=== PATIENT | female | born 1985 | race Caucasian/White ===

== ENCOUNTER 2017-07-20 11:37 | Emergency (ER) | payer MEDICAID ==
[~2017-07-20] VITALS: Ht 170.2 cm; Wt 82.6 kg
[2017-07-20 12:20] LABS: HCG UR LOT HCG7030192
[2017-07-20 12:26] LABS: HEMATOCRIT 39.6 % (34.6-47.8); HEMOGLOBIN 13.6 g/dL (11.7-16.4); WHITE BLOOD COUNT 8.6 x10^3/uL (3.4-10)
[2017-07-20 12:28] LABS: HCG UR OBC PASS
[2017-07-20 12:39] LABS: ASPARTATE AMINO TRANSFERASE 9 U/L (15-37); BLOOD UREA NITROGEN 7 mg/dL (7-18)
[2017-07-20 13:07] VITALS: BP 145/76
== END 2017-07-20 14:04 | disposition home or self-care (01) ==
LOC: ED 13:40
DX: B34.9 Viral infection, unspecified (principal); F32.9 Major depressive disorder, single episode, unspecified; Z98.890 Other specified postprocedural states
CPT/HCPCS: 36415; 71020; 80053; 81003; 81025; 85025; 93005; 99285

== ENCOUNTER 2018-01-29 11:40 | Emergency (ER) | payer MEDICAID ==
[~2018-01-29] VITALS: Ht 170.2 cm; Wt 103.2 kg
[2018-01-29 11:42] VITALS: BP 131/83
[2018-01-29] MEDS ORDERED: DIPH,PERTUSS(ACELL),TET VAC/PF 0.5 ML IM-VACC ONE ×2 (12:54→13:00)
== END 2018-01-29 13:04 | disposition home or self-care (01) ==
LOC: ED 12:58
DX: S61.353A Open bite of left middle finger with damage to nail, initial encounter (principal); I10 Essential (primary) hypertension; W54.0XXA Bitten by dog, initial encounter; Y93.89 Activity, other specified; Y92.89 Other specified places as the place of occurrence of the external cause; Y99.8 Other external cause status
CPT/HCPCS: 90471; 90715; 99283

== ENCOUNTER 2018-03-14 13:48 | Emergency (ER) | payer MEDICAID ==
[~2018-03-14] VITALS: Ht 170.2 cm; Wt 110.2 kg
[2018-03-14 15:13] VITALS: BP 131/69
[2018-03-14] MEDS ORDERED: BUPROPION PO (15:17)
[2018-03-14] MEDS ORDERED: ESCI20TA PO (15:17)
[2018-03-14] MEDS ORDERED: PRAZ2CAP2 PO (15:17)
[2018-03-14] MEDS ORDERED: TRAZ100T15 PO (15:17)
[2018-03-14] MEDS ORDERED: CITA40TA5 PO (15:17)
== END 2018-03-14 15:33 | disposition home or self-care (01) ==
LOC: ED 15:00
DX: H66.001 Acute suppurative otitis media without spontaneous rupture of ear drum, right ear (principal); J00 Acute nasopharyngitis [common cold]; I10 Essential (primary) hypertension
CPT/HCPCS: 71046; 93005; 99284

== ENCOUNTER 2018-06-01 11:42 | Emergency (ER) | payer MEDICAID ==
[~2018-06-01] VITALS: Ht 172.7 cm; Wt 120.0 kg
[~2018-06-01 11:42] MED LIST: BUPROPION PO; CITA40TA5 PO; ESCI20TA PO; PRAZ2CAP2 PO; TRAZ-137 PO
[2018-06-01 11:48] VITALS: BP 145/83
[2018-06-01] MEDS ORDERED: ALBUTEROL/IPRATROPIUM 2.5MG/0.5MG, 3 ML NPPB SCH (12:00)
[2018-06-01] MEDS ORDERED: DEXAMETHASONE 4 MG TABLET PO ONE (12:00)
[2018-06-01] MEDS ORDERED: DEXAMETHASONE 4 MG TABLET ONE (12:10)
[2018-06-01] MEDS ORDERED: ALBUTEROL/IPRATROPIUM 2.5MG/0.5MG, 3 ML ONE (12:11)
== END 2018-06-01 12:52 | disposition home or self-care (01) ==
LOC: ED 12:46
DX: J45.31 Mild persistent asthma with (acute) exacerbation (principal); J00 Acute nasopharyngitis [common cold]; I10 Essential (primary) hypertension; F17.200 Nicotine dependence, unspecified, uncomplicated; H92.03 Otalgia, bilateral
CPT/HCPCS: 94640; 99283; J7620

== ENCOUNTER 2019-02-19 10:43 | Emergency (ER) | payer MEDICAID ==
[~2019-02-19] VITALS: Ht 172.7 cm; Wt 125.5 kg
[2019-02-19 11:29] LABS: HCG UR SG 1.023 (1.003-1.030); MICROSCOPIC AUTO
[2019-02-19 11:30] LABS: CULTURE INDICATED? YES
--- NOTE | 2019-02-19 13:06 | NUR ---
[place]: PT TO ROOM FROM LOBBY, UPRIGHT STEADY GAIT.
--- NOTE | 2019-02-19 13:10 | NUR ---
"feeling like i ahve a bladder or urinary tract infection", frequency, discharge, pain on urination, cloudy urine, denies blood in urine. symptoms x 3 days
[2019-02-19 13:54] VITALS: BP 105/79
--- NOTE | 2019-02-19 14:06 | NUR ---
er performed pelvic exam. pt tolerated procedure well. pt resting on gurney. friend at bedside. no acute distress noted. specimens walked to lab. pt has no requests at this time.
[2019-02-19 14:24] LABS: CLUE CELLS NONE SEEN (NONE SEEN); WET PREP WBCS MODERATE (FEW)
[2019-02-19] MEDS ORDERED: CEFTRIAXONE 250 MG ONE (14:52)
[2019-02-19] MEDS ORDERED: metroNIDAZOLE 500 MG TABLET ONE (14:52)
[2019-02-19] MEDS ORDERED: AZITHROMYCIN 250 MG TABLET ONE (14:53)
[2019-02-19] MEDS ORDERED: LIDOCAINE-MPF 1%, 2ML ONE (14:59)
[2019-02-19] MEDS ORDERED: AZITHROMYCIN 500 MG TABLET PO ONE (15:00)
[2019-02-19] MEDS ORDERED: metroNIDAZOLE 500 MG TABLET PO ONE (15:00)
[2019-02-19] MEDS ORDERED: CEFTRIAXONE 250 MG IM ONE (15:00)
== END 2019-02-19 15:22 | disposition home or self-care (01) ==
LOC: ED 13:23
DX: A59.01 Trichomonal vulvovaginitis (principal); I10 Essential (primary) hypertension; J45.909 Unspecified asthma, uncomplicated; F17.200 Nicotine dependence, unspecified, uncomplicated
CPT/HCPCS: 81001; 81025; 87086; 87147; 87210; 87491; 87591; 87808; 96372; 99283; J0696

== ENCOUNTER 2019-03-08 10:44 | Emergency (ER) | payer MEDICAID ==
[~2019-03-08] VITALS: Ht 170.2 cm; Wt 126.1 kg
[2019-03-08 11:23] LABS: CULTURE INDICATED? YES; MICROSCOPIC INDICATED
[2019-03-08 11:54] LABS: BASOPHILS # (AUTO) 0.05 x10^3/uL (0-0.1); BASOPHILS % (AUTO) 1 % (0-1); EOSINOPHILS # (AUTO) 0.18 x10^3/uL (0-0.4); EOSINOPHILS % (AUTO) 2 % (1-7); LYMPHOCYTES # (AUTO) 3.02 x10^3/uL (1-3.4); LYMPHOCYTES % (AUTO) 30 % (22-44); MD NO; MEAN CORPUSCULAR HEMOGLOBIN 31.1 pg (27.0-34.8); MEAN CORPUSCULAR HGB CONC 32.6 g/dL (32.4-35.8); MEAN CORPUSCULAR VOLUME 95.3 fL (80-100); MEAN PLATELET VOLUME 7.9 fL (7.4-10.4); MONOCYTES # (AUTO) 0.54 x10^3/uL (0.2-0.8); MONOCYTES % (AUTO) 5 % (2-9); NEUTROPHILS % (AUTO) 62 % (42-75); PLATELET COUNT 324 x10^3/uL (130-400); RED BLOOD COUNT 4.34 x10^6/uL (3.82-5.3)
[2019-03-08 12:05] LABS: ALBUMIN 3.5 g/dL (3.4-5.0); CALCIUM 8.7 mg/dL (8.5-10.1); CHLORIDE 108 mmol/L (98-107)
[2019-03-08 12:16] LABS: ANION GAP 8 mmol/L (5-15); CREATININE 0.85 mg/dL (0.55-1.02)
[2019-03-08 13:32] VITALS: BP 162/112
[2019-03-08] MEDS ORDERED: TOPI100T8 PO (15:13)
[2019-03-08 15:49] LABS: CLUE CELLS NONE SEEN (NONE SEEN); WET PREP WBCS FEW (FEW)
--- NOTE | 2019-03-08 17:11 | NUR ---
Patient/Caregiver given discharge instructions and they have confirmed that they understand the instructions. Patient ambulatory with steady gait.
== END 2019-03-08 17:12 | disposition home or self-care (01) ==
LOC: ED 15:43
DX: N30.00 Acute cystitis without hematuria (principal); J45.909 Unspecified asthma, uncomplicated; F32.9 Major depressive disorder, single episode, unspecified
CPT/HCPCS: 36415; 76830; 80048; 81001; 82040; 84703; 85025; 87077; 87086; 87186; 87210; 87491; 87591; 87808; 99284

== ENCOUNTER 2019-05-05 10:05 | Outpatient (CLI) | payer MEDICAID | END 2019-05-05 23:59 | disposition home or self-care (01) | LOC: STAR 10:05 | PROVIDERS: ATTEND Obstetrics & Gynecology Female Pelvic Medicine and Reconstructive Surgery | DX: Z01.818 Encounter for other preprocedural examination (principal); R19.09 Other intra-abdominal and pelvic swelling, mass and lump; R10.2 Pelvic and perineal pain | CPT/HCPCS: 81001; 87086 ==

== ENCOUNTER 2019-05-09 08:17 | Day surgery (SDC) | payer MEDICAID ==
[~2019-05-09] VITALS: Ht 170.2 cm; Wt 126.2 kg
[2019-05-09 08:58] VITALS: BP 136/88
== END 2019-05-09 13:55 | disposition home or self-care (01) ==
LOC: OUT 08:17
PROVIDERS: ATTEND Obstetrics & Gynecology Female Pelvic Medicine and Reconstructive Surgery
DX: D39.11 Neoplasm of uncertain behavior of right ovary (principal); N81.89 Other female genital prolapse; N39.3 Stress incontinence (female) (male); I10 Essential (primary) hypertension; J45.909 Unspecified asthma, uncomplicated; F17.210 Nicotine dependence, cigarettes, uncomplicated; Z79.899 Other long term (current) drug therapy; Z88.2 Allergy status to sulfonamides; Z91.018 Allergy to other foods
CPT/HCPCS: 58661; 88305; J0690; J1100; J1885; J2250; J2405; J2704; J2710; J3010; J3490; J7120

== ENCOUNTER 2019-05-11 17:18 | Emergency (ER) | payer MEDICAID ==
[~2019-05-11] VITALS: Ht 170.2 cm; Wt 129.1 kg
[2019-05-11 18:27] VITALS: BP 143/95
== END 2019-05-11 21:06 | disposition left against medical advice (07) ==
LOC: ED 21:00
DX: T81.40XA Infection following a procedure, unspecified, initial encounter (principal)
CPT/HCPCS: 36415; 80053; 81001; 84703; 85025; 87086; 99283

== ENCOUNTER 2020-07-10 19:23 | Emergency (ER) | payer MEDICAID ==
[~2020-07-10] VITALS: Ht 170.2 cm; Wt 132.0 kg
[~2020-07-10 19:23] MED LIST changes: +BUPR450T3 PO; +TOPI100T8 PO; -TRAZ-137 PO; +TRAZ-175 PO
[2020-07-10 21:10] VITALS: BP 150/103
--- NOTE | 2020-07-10 21:11 | NUR ---
First contact with patient: patient presents to ER c/o rectal pain since yesterday. Denies rectal bleeding; having normal BM. Patient is in NAD. Respirations even and unlabored.
== END 2020-07-10 21:57 | disposition home or self-care (01) ==
LOC: ED 21:56
DX: K62.89 Other specified diseases of anus and rectum (principal); F17.210 Nicotine dependence, cigarettes, uncomplicated
CPT/HCPCS: 99283; 99406

== ENCOUNTER 2020-10-12 17:03 | Emergency (ER) | payer MEDICAID ==
[~2020-10-12] VITALS: Ht 172.7 cm; Wt 134.9 kg
[~2020-10-12 17:03] MED LIST changes: -ESCI20TA PO; +ESCI20TA5 PO
--- NOTE | 2020-10-12 17:15 | NUR ---
OUTREACH WORKER: PT TO ROOM FROM TRIAGE
--- NOTE | 2020-10-12 17:25 | NUR ---
PT RESTING IN POSITION OF COMFORT IN [facility]. CONTINUOUS SPO2 AND CARDIAC MONITORING IN PLACE. REPORT TO PRIMARY RN, ALEKSANDAR. ED KAM[facility] VEGA, AT BEDSIDE.
[2020-10-12 18:20] LABS: BASOPHILS % (AUTO) 0 % (0-1); EOSINOPHILS % (AUTO) 1 % (1-7); LYMPHOCYTES % (AUTO) 25 % (22-44); MEAN CORPUSCULAR HEMOGLOBIN 33.1 pg (27.0-34.8); MEAN PLATELET VOLUME 7.2 fL (7.4-10.4); MONOCYTES % (AUTO) 8 % (2-9); NEUTROPHILS % (AUTO) 66 % (42-75); PLATELET COUNT 255 x10^3/uL (130-400); RED CELL DISTRIBUTION WIDTH 14.3 % (9.6-15.2)
[2020-10-12 18:24] LABS: MD NO
[2020-10-12 18:32] LABS: ALBUMIN 3.6 g/dL (3.4-5.0); ANION GAP 8 mmol/L (5-15); CALCIUM 8.9 mg/dL (8.5-10.1); CHLORIDE 107 mmol/L (98-107); CREATININE 0.78 mg/dL (0.55-1.02)
[2020-10-12 18:37] LABS: ALANINE AMINOTRANSFERASE 21 U/L (12-78); ALKALINE PHOSPHATASE 72 U/L (45-117); BILIRUBIN,TOTAL 0.3 mg/dL (0.2-1.0); D-DIMER (DIC) 1.87 ug/mlFEU (0.00-0.52); PROTIME 10.7 Seconds (9.6-11.5); TOTAL PROTEIN 7.6 g/dL (6.4-8.2); TROPONIN I < 0.015 ng/mL (0.000-0.045)
--- NOTE | 2020-10-12 18:49 | NUR ---
Report from Christine HAY
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
--- NOTE | 2020-10-12 19:16 | NUR ---
PATIENT AMBULATED TO RESTROOM UNASSISTED, RETURNED TO ROOM WITHOUT INCIDENT, NAD, VSS, WILL CONTINUE TO MONITOR
[2020-10-12] MEDS ORDERED: SODIUM CHLORIDE FLUSH 10ML SYR IVF ONE (19:30)
[2020-10-12] MEDS ORDERED: SODIUM CHLORIDE 0.9% 1,000 ML IV ONE (19:30)
[2020-10-12] MEDS ORDERED: OMNIPAQUE 350 MG/ML, 100ML BOTTLE ONE (20:00)
--- NOTE | 2020-10-12 20:00 | NUR ---
PATIENT RESTING ON STRETCHER, NAD, VSS, CALL [facility] WITHIN REACH, WILL CONTINUE TO MONITOR
[2020-10-12 21:03] VITALS: BP 128/82
--- NOTE | 2020-10-12 21:04 | NUR ---
PATIENT RESTING ON STRETCHER, CT AWARE OF NEW IV ACCESS, CALL [facility] WITHIN REACH, NAD, VSS WILL CONTINUE TO MONITOR.
[2020-10-12] MEDS ORDERED: KETOROLAC 30 MG/1 ML ONE (21:57)
[2020-10-12] MEDS ORDERED: KETOROLAC 30 MG/1 ML IVPush ONE (22:00)
== END 2020-10-12 22:01 ==
LOC: ED 22:00
DX: R07.89 Other chest pain (principal); R11.2 Nausea with vomiting, unspecified; Z20.822 Contact with and (suspected) exposure to COVID-19; I10 Essential (primary) hypertension; J44.9 Chronic obstructive pulmonary disease, unspecified; F17.200 Nicotine dependence, unspecified, uncomplicated
CPT/HCPCS: 36415; 71045; 71275; 80053; 82728; 83605; 83615; 83880; 84145; 84484; 85025; 85049; 85379; 85384; 85610; 85730; 86140; 87040; 87635; 93005; 96361; 96374; 99285; J1885; J7030; Q9967

== ENCOUNTER 2021-01-11 11:57 | Emergency (ER) | payer MEDICAID ==
[~2021-01-11] VITALS: Ht 170.2 cm; Wt 112.5 kg
[~2021-01-11 11:57] MED LIST changes: -ESCI20TA5 PO; +ESCI20TA8 PO
[2021-01-11] MEDS ORDERED: SODIUM CHLORIDE FLUSH 10ML SYR IVF ONE (12:30)
[2021-01-11] MEDS ORDERED: DEXAMETHASONE 4 MG/ML, 5ML IVPush ONE (12:30)
[2021-01-11 12:38] LABS: BASOPHILS % (AUTO) 0 % (0-1); EOSINOPHILS % (AUTO) 0 % (1-7); LYMPHOCYTES % (AUTO) 10 % (22-44); MEAN CORPUSCULAR HEMOGLOBIN 31.9 pg (27.0-34.8); MEAN CORPUSCULAR HGB CONC 34.1 g/dL (32.4-35.8); MONOCYTES % (AUTO) 5 % (2-9); NEUTROPHILS % (AUTO) 84 % (42-75); PLATELET COUNT 278 x10^3/uL (130-400); RED BLOOD COUNT 4.28 x10^6/uL (3.82-5.3); RED CELL DISTRIBUTION WIDTH 13.1 % (9.6-15.2)
[2021-01-11] MEDS ORDERED: DEXAMETHASONE 4 MG/ML, 1ML ONE (12:41)
[2021-01-11 12:51] LABS: ALANINE AMINOTRANSFERASE 18 U/L (12-78); ALBUMIN 3.2 g/dL (3.4-5.0); ANION GAP 7 mmol/L (5-15); CALCIUM 8.6 mg/dL (8.5-10.1); CHLORIDE 103 mmol/L (98-107); CREATININE 0.62 mg/dL (0.55-1.02)
[2021-01-11 12:53] LABS: ALKALINE PHOSPHATASE 76 U/L (45-117); BILIRUBIN,TOTAL 0.8 mg/dL (0.2-1.0); TOTAL PROTEIN 7.2 g/dL (6.4-8.2)
--- NOTE | 2021-01-11 13:20 | NUR ---
WAITING FOR COVID TEST RESULTS
[2021-01-11 13:33] LABS: MD SCAN
--- NOTE | 2021-01-11 15:48 | NUR ---
OFF THE FLOOR TO CT
--- NOTE | 2021-01-11 16:07 | NUR ---
PT BACK FROM CT
[2021-01-11 16:55] VITALS: BP 133/79
[2021-01-11] MEDS ORDERED: CEFTRIAXONE 1,000 MG in DEXTROSE 5% 50 ML IVPB ONE (17:00)
[2021-01-11] MEDS ORDERED: AZITHROMYCIN 500 MG in SODIUM CHLORIDE 0.9% 250 ML IVPB ONE (17:00)
--- NOTE | 2021-01-11 17:33 | NUR ---
PT REC'VD DISCHARGE INSTRUCTIONS AND EDUCATION. PT HAD NO FURTHER QUESTIONS. PT AMBUALTED TO DC AREA, STEADY GAIT.
== END 2021-01-11 17:37 | disposition home or self-care (01) ==
LOC: ED 17:30
DX: J15.9 Unspecified bacterial pneumonia (principal); L04.0 Acute lymphadenitis of face, head and neck; Z20.822 Contact with and (suspected) exposure to COVID-19; I10 Essential (primary) hypertension; J44.9 Chronic obstructive pulmonary disease, unspecified
CPT/HCPCS: 36415; 70491; 71045; 80053; 85025; 96374; 99285; J1100; U0003